=== PATIENT | female | born 1940 | race Caucasian/White ===

== ENCOUNTER 2019-05-24 07:22 | Inpatient (IN) | payer MEDICARE, OTHER ==
--- NOTE | 2019-05-24 08:22 | EDM.PDOC ---
ED HPI GENERAL MEDICAL PROBLEM - General Chief Complaint: General Stated Complaint: MEDICAL VIA AMBULANCE Time Seen by Provider: 05/24/19 08:18 Source of Information: Reports: Patient History Limitations: Reports: No Limitations - History of Present Illness INITIAL COMMENTS - FREE TEXT/NARRATIVE: pt arrived by ambulance because of persistent dizziness and some difficulty swallowing. She does not have a headache. 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 She has not fallen recently. She has a past history of breast ca. Pt is swallowing soft foods at this time. She was placed on predisone when she was seen in [place] a few days ago. She was taken off of lisinopriol and placed on norvasc. Onset: Gradual Duration: Day(s): Location: Reports: Head, Upper Extremity, Left Associated Symptoms: Reports: Other (pt is dizzy when she stands up and is still having some swallowing difficulty. ) - Related Data Allergies Allergy/AdvReac Type Severity Reaction Status Date / Time lisinopril Allergy Edema Verified 05/24/19 07:41 Home Meds: Home Meds Cyanocobalamin (Vitamin B-12) [Vitamin B-12] 1,000 mcg PO DAILY 05/24/19 [ History] Ergocalciferol (Vitamin D2) [Vitamin D2] 400 unit PO DAILY 05/24/19 [History] Fluticasone Propionate [Flonase Allergy Relief] 2 spray CHARAN ASDIRECTED 05/24/19 [History] Metoprolol Succinate [Toprol Xl] 50 mg PO DAILY 05/24/19 [History] Spironolactone 50 mg PO DAILY 05/24/19 [History] Warfarin Sodium 5 - 7.5 mg PO ASDIRECTED 05/24/19 [History] amLODIPine Besylate [Amlodipine Besylate] 10 mg PO DAILY 05/24/19 [History] predniSONE 20 mg PO DAILY 05/24/19 [History] Past Medical History HEENT History: Reports: Cataract Cardiovascular History: Reports: Heart Murmur, Hypertension Musculoskeletal History: Reports: Osteoporosis Neurological History: Reports: TIA Other Endocrine/Metabolic History: Hyperlipidema. hyperaldosteronism Hematologic History: Reports: Anticoagulation Therapy, B12 Deficiency, Other ( See Below) Other Hematologic History: Factor 5 disorder Social & Family History - Tobacco Use Smoking Status *Q: Never Smoker ED ROS GENERAL - Review of Systems Review Of Systems: See Below Constitutional: Reports: No Symptoms, Weakness HEENT: Reports: No Symptoms, Vertigo, Other (dizziness) Respiratory: Reports: Shortness of Breath Cardiovascular: Reports: Other (dizziness) Endocrine: Reports: Fatigue GI/Abdominal: Reports: Difficulty Swallowing, Other (pt is having difficulty swallowing) : Reports: No Symptoms, Frequency Musculoskeletal: Reports: No Symptoms Skin: Reports: No Symptoms Neurological: Reports: Dizziness Psychiatric: Reports: Anxiety ED EXAM, GENERAL - Physical Exam Exam: See Below Free Text/Narrative:: pt arrived stating that she is feeling very dizzy and this has been going on for several days. She has been much weaker than usual. She is not feeling comfortable at home alone. Exam Limited By: No Limitations General Appearance: Alert, No Apparent Distress, Anxious, Other (pupils are equal and reactive. ) Ears: Normal TMs Nose: Normal Inspection Throat/Mouth: Normal Inspection Head: Atraumatic Neck: Normal Inspection Respiratory/Chest: No Respiratory Distress Cardiovascular: Regular Rate, Rhythm GI/Abdominal: Soft, Non-Tender (Female) Exam: Deferred Rectal (Female) Exam: Deferred Back Exam: Normal Inspection Extremities: Normal Inspection Neurological: Alert, Oriented, Normal Cognition Psychiatric: Normal Affect Course - Vital Signs Last Recorded V/S: Last Vital Signs Temp 36.1 C 05/24/19 07:50 Pulse 84 05/24/19 07:50 Resp 16 05/24/19 07:50 BP 116/71 05/24/19 07:50 Pulse Ox 97 05/24/19 07:50 Orthostatic Blood Pressure [ 94/54 Standing] Orthostatic Blood Pressure [ 134/67 Sitting] Orthostatic Blood Pressure [ 137/71 Supine] - Orders/Labs/Meds Orders: Active Orders 24 hr Category Date Time Status EKG Documentation Completion [RC] ASDIRECTED Care 05/24/19 08:17 Active Chest 1V Frontal [CR] Stat Exams 05/24/19 09:05 Taken UA W/MICROSCOPIC [URIN] Urgent Lab 05/24/19 10:03 Ordered Sodium Chloride 0.9% [Normal Saline] 1,000 ml Med 05/24/19 10:15 Ordered IV ASDIRECTED EKG 12 Lead [EK] Routine Ther 05/24/19 08:17 Ordered Medication Orders Sodium Chloride (Normal Saline) 1,000 mls @ 500 mls/hr IV ASDIRECTED SANDRA Labs: Laboratory Tests 05/24/19 05/24/19 05/24/19 Range/Units 08:13 08:13 08:13 WBC 7.0 (4.5-11.0) K/uL RBC 4.17 (3.30-5.50) M/uL Hgb 12.8 (12.0-15.0) g/dL Hct 35.5 L (36.0-48.0) % MCV 85 (80-98) fL MCH 31 (27-31) pg MCHC 36 (32-36) % Plt Count 284 (150-400) K/uL Neut % (Auto) 72 H (36-66) % Lymph % (Auto) 15 L (24-44) % [place] % (Auto) 13 H (2-6) % Eos % (Auto) 0 L (2-4) % Baso % (Auto) 0 (0-1) % PT 22.1 H (9.5-12.0) sec INR 2.14 H (0.80-1.20) Sodium 115 L* (140-148) mmol/L Potassium 5.0 (3.6-5.2) mmol/L Chloride 83 L (100-108) mmol/L Carbon Dioxide 24 (21-32) mmol/L Anion Gap 13.0 (5.0-14.0) mmol/L BUN 29 H (7-18) mg/dL Creatinine 0.9 (0.6-1.0) mg/dL Est Cr Clr Drug Dosing 41.93 mL/min Estimated GFR (MDRD) > 60 (>60) Glucose 125 H (74-106) mg/dL Calcium 10.0 (8.5-10.1) mg/dL Total Bilirubin 1.6 H (0.2-1.0) mg/dL AST 38 H (15-37) U/L ALT 43 (12-78) U/L Alkaline Phosphatase 64 (46-116) U/L Total Protein 7.0 (6.4-8.2) g/dL Albumin 3.8 (3.4-5.0) g/dL Globulin 3.2 (2.3-3.5) g/dL Albumin/Globulin Ratio 1.2 (1.2-2.2) TSH, Ultra Sensitive (0.358-3.740) uIU/mL 05/24/19 Range/Units 08:20 WBC (4.5-11.0) K/uL RBC (3.30-5.50) M/uL Hgb (12.0-15.0) g/dL Hct (36.0-48.0) % MCV (80-98) fL MCH (27-31) pg MCHC (32-36) % Plt Count (150-400) K/uL Neut % (Auto) (36-66) % Lymph % (Auto) (24-44) % [place] % (Auto) (2-6) % Eos % (Auto) (2-4) % Baso % (Auto) (0-1) % PT (9.5-12.0) sec INR (0.80-1.20) Sodium (140-148) mmol/L Potassium (3.6-5.2) mmol/L Chloride (100-108) mmol/L Carbon Dioxide (21-32) mmol/L Anion Gap (5.0-14.0) mmol/L BUN (7-18) mg/dL Creatinine (0.6-1.0) mg/dL Est Cr Clr Drug Dosing mL/min Estimated GFR (MDRD) (>60) Glucose (74-106) mg/dL Calcium (8.5-10.1) mg/dL Total Bilirubin (0.2-1.0) mg/dL AST (15-37) U/L ALT (12-78) U/L Alkaline Phosphatase (46-116) U/L Total Protein (6.4-8.2) g/dL Albumin (3.4-5.0) g/dL Globulin (2.3-3.5) g/dL Albumin/Globulin Ratio (1.2-2.2) TSH, Ultra Sensitive 7.487 H (0.358-3.740) uIU/mL Meds: Medications Generic Name Dose Route Start Last Admin Trade Name Freq PRN Reason Stop Dose Admin Sodium Chloride 1,000 mls @ 500 mls/hr 05/24/19 10:15 Normal Saline IV ASDIRECTED SANDRA - Re-Assessments/Exams Free Text/Narrative Re-Assessment/Exam: 05/24/19 10:02 pt was found to be weaker on the left than the right. The pt did have bilateral subdurals in the past. Her cat scan of the head was normal . Her na was found to be 115. Her tsh is elevated. 05/24/19 10:04 05/24/19 10:04 Departure - Departure Time of Disposition: 10:10 Disposition: Admitted As Inpatient 66 Condition: Fair Clinical Impression: Hyponatremia, Orthostatic hypotension, Vertigo - Discharge Information Referrals: PCP,None [Primary Care Provider] - Forms: ED Department Discharge Care Plan Goals: admit to Dr Juarez Sepsis Event Note - Evaluation Sepsis Screening Result: No Definite Risk - Focused Exam Vital Signs: Vital Signs Temp Pulse Resp BP Pulse Ox 05/24/19 07:50 36.1 C 84 16 116/71 97 05/24/19 07:46 36.1 C 84 16 116/71 97 Date Exam was Performed: 05/24/19 Time Exam was Performed: 10:10 - My Orders Last 24 Hours: My Active Orders 05/24/19 08:17 EKG Documentation Completion [RC] ASDIRECTED EKG 12 Lead [EK] Routine 05/24/19 09:05 Chest 1V Frontal [CR] Stat 05/24/19 10:03 UA W/MICROSCOPIC [URIN] Urgent 05/24/19 10:15 Sodium Chloride 0.9% [Normal Saline] 1,000 ml IV ASDIRECTED - Assessment/Plan Last 24 Hours: My Active Orders 05/24/19 08:17 EKG Documentation Completion [RC] ASDIRECTED EKG 12 Lead [EK] Routine 05/24/19 09:05 Chest 1V Frontal [CR] Stat 05/24/19 10:03 UA W/MICROSCOPIC [URIN] Urgent 05/24/19 10:15 Sodium Chloride 0.9% [Normal Saline] 1,000 ml IV ASDIRECTED
--- NOTE | 2019-05-24 09:31 | CRLCT ---
INDICATION: Left-sided weakness, dizziness. COMPARISON: none TECHNIQUE: A CT volumetric acquisition was performed of the brain without IV contrast. FINDINGS: There is parenchymal volume loss within the cerebellum and both cerebral hemispheres. There is no evidence of a subdural or epidural hematoma. There is no evidence of subarachnoid hemorrhage or intraparenchymal bleeding. The CT images reveal a normal appearance of the cerebral ventricles and basal cisterns. There is no evidence of localized tissue infarction or mass effect. There is normal friedman white matter differentiation. The mastoid air cells and middle ear cavities are clear. There are bilateral craniotomy defects within the frontal portion of the skull. The calvarium otherwise appears intact. There is normal aeration of the visualized paranasal sinuses. IMPRESSION: No acute hemorrhage, infarct or mass effect. There is underlying parenchymal volume loss with prominent CSF spaces. Dictated by Juan Colbert MD @ 05/24/2019 9:28:57 AM Please note that all CT scans at this facility use dose modulation, iterative reconstruction, and/or weight-based dosing when appropriate to reduce radiation dose to as low as reasonably achievable. Dictated by: Juan Colbert MD @ 05/24/2019 09:29:35 (Electronically Signed)
[2019-05-24] MEDS ORDERED: Sodium Chloride 0.9% 1,000 ML IV SCH ×2 (10:15→12:37)
--- NOTE | 2019-05-24 10:21 | CRLCR ---
INDICATION: low NA, SOB HISTORY: Hyponatremia. Shortness of breath. COMPARISON: None. TECHNIQUE: Chest one-view portable upright. FINDINGS: Elevation of the right hemidiaphragm. Pulmonary roya appear enlarged. This may represent pulmonary arterial hypertension. Hilar adenopathy is an additional consideration. There is no thickening of the right paratracheal stripe. There is no pneumothorax. The osseous structures are intact. Heart size and pulmonary vasculature are within normal limits. IMPRESSION: 1. There is no acute airspace disease. 2. Bilateral hilar enlargement. No thickening of the right paratracheal stripe. 3. Differential diagnosis includes pulmonary arterial hypertension or hilar lymphadenopathy. Suggest comparison with remote chest x-rays, which are not currently available for review. Dictated by Juvencio Austin MD @ 05/24/2019 10:20:10 AM Dictated by: Juvencio Austin MD @ 05/24/2019 10:20:20 (Electronically Signed)
--- NOTE | 2019-05-24 12:00 | PCM.HP.2 ---
H&P History of Present Illness - General Date of Service: 05/24/19 Admit Problem/Dx: Admission Diagnosis/Problem Admission Diagnosis/Problem Hyponatremia Source of Information: Patient, Provider History Limitations: Reports: No Limitations - History of Present Illness Initial Comments - Free Text/Narative: CC: I was hungry but too weak to get out of bed HPI: Mary presents to the emergency room today with weakness and dizziness. Symptoms started about 1 week ago and have progressed. She was seen in the emergency room in [place] 2 days ago. There was concern for angioedema from her lisinopril with difficulty swallowing noted. Lisinopril was stopped and she was started on amlodipine in its place. She was also given prednisone for a total of 5 days. Since that time she thinks her swelling got better but now she is developed worsening weakness and dizziness/lightheadedness. She has had very little to eat or drink in the last few days because of her weakness and inability to get out of bed. She thinks her swallowing is getting better. She does not feel breath and has not had chest pain no abdominal pain or nausea. No change in bowel or bladder habits but she has been urinating less than usual. She is not aware of any fevers or chills. Work-up in the 2 room revealed positive orthostatics as well as a sodium of 115. She has received 1 L of IV fluids. She will be admitted for management of presumed hypovolemic hyponatremia and generalized weakness. - Related Data Allergies/Adverse Reactions: Allergies Allergy/AdvReac Type Severity Reaction Status Date / Time lisinopril Allergy Edema Verified 05/24/19 07:41 Home Medications: Home Meds Cyanocobalamin (Vitamin B-12) [Vitamin B-12] 1,000 mcg PO DAILY 05/24/19 [ History] Ergocalciferol (Vitamin D2) [Vitamin D2] 400 unit PO DAILY 05/24/19 [History] Fluticasone Propionate [Flonase Allergy Relief] 2 spray CHARAN ASDIRECTED 05/24/19 [History] Metoprolol Succinate [Toprol Xl] 50 mg PO DAILY 05/24/19 [History] Spironolactone 50 mg PO BID 05/24/19 [History] Warfarin Sodium 7.5 mg PO ASDIRECTED 05/24/19 [History] Warfarin [Coumadin] 5 mg PO ASDIRECTED 05/24/19 [History] amLODIPine Besylate [Amlodipine Besylate] 10 mg PO DAILY 05/24/19 [History] predniSONE 20 mg PO DAILY 05/24/19 [History] Past Medical History HEENT History: Reports: Cataract Cardiovascular History: Reports: Heart Murmur, Hypertension Musculoskeletal History: Reports: Osteoporosis Neurological History: Reports: TIA Other Endocrine/Metabolic History: Hyperlipidema. hyperaldosteronism Hematologic History: Reports: Anticoagulation Therapy, B12 Deficiency, Other ( See Below) Other Hematologic History: Factor 5 disorder Social & Family History - Tobacco Use Smoking Status *Q: Never Smoker H&P Review of Systems - Review of Systems: Review Of Systems: See Below Free Text/Narrative: A complete 12 point review of systems was obtained. Pertinent positives and negatives are noted in the history of present illness. All other systems were reviewed and were negative except as noted. Exam - Exam Exam: See Below - Vital Signs Vital Signs: Last Vital Signs Temp 36.1 C 05/24/19 07:50 Pulse 84 05/24/19 07:50 Resp 16 05/24/19 07:50 BP 116/71 05/24/19 07:50 Pulse Ox 97 05/24/19 07:50 Orthostatic Blood Pressure [ 94/54 Standing] Orthostatic Blood Pressure [ 134/67 Sitting] Orthostatic Blood Pressure [ 137/71 Supine] Weight: 63.957 kg - Exam Quality Assessment: No: Supplemental Oxygen General: Alert, Oriented, Cooperative. No: Mild Distress HEENT: Conjunctiva Clear, Mucosa Moist & [place]. No: Scleral Icterus Neck: Supple, Trachea Midline Lungs: Clear to Auscultation, Normal Respiratory Effort Cardiovascular: Regular Rate, Regular Rhythm, Systolic Murmur GI/Abdominal Exam: Normal Bowel Sounds, Soft, Non-Tender, No Distention Extremities: No Pedal Edema. No: Increased Warmth Skin: Warm, Dry Neuro Extensive - Mental Status: Alert, Oriented x3, Nl Response to Commands Neuro Extensive - Motor, Sensory, Reflexes: No: Dysarthria, Abnormal Motor, Tremor Psychiatric: Alert, Normal Affect - Patient Data Lab Results Last 24 hrs: Laboratory Results - last 24 hr 05/24/19 05/24/19 05/24/19 Range/Units 08:13 08:13 08:13 WBC 7.0 (4.5-11.0) K/uL RBC 4.17 (3.30-5.50) M/uL Hgb 12.8 (12.0-15.0) g/dL Hct 35.5 L (36.0-48.0) % MCV 85 (80-98) fL MCH 31 (27-31) pg MCHC 36 (32-36) % Plt Count 284 (150-400) K/uL Neut % (Auto) 72 H (36-66) % Lymph % (Auto) 15 L (24-44) % [place] % (Auto) 13 H (2-6) % Eos % (Auto) 0 L (2-4) % Baso % (Auto) 0 (0-1) % PT 22.1 H (9.5-12.0) sec INR 2.14 H (0.80-1.20) Sodium 115 L* (140-148) mmol/L Potassium 5.0 (3.6-5.2) mmol/L Chloride 83 L (100-108) mmol/L Carbon Dioxide 24 (21-32) mmol/L Anion Gap 13.0 (5.0-14.0) mmol/L BUN 29 H (7-18) mg/dL Creatinine 0.9 (0.6-1.0) mg/dL Est Cr Clr Drug Dosing 41.93 mL/min Estimated GFR (MDRD) > 60 (>60) Glucose 125 H (74-106) mg/dL Calcium 10.0 (8.5-10.1) mg/dL Total Bilirubin 1.6 H (0.2-1.0) mg/dL AST 38 H (15-37) U/L ALT 43 (12-78) U/L Alkaline Phosphatase 64 (46-116) U/L Total Protein 7.0 (6.4-8.2) g/dL Albumin 3.8 (3.4-5.0) g/dL Globulin 3.2 (2.3-3.5) g/dL Albumin/Globulin Ratio 1.2 (1.2-2.2) TSH, Ultra Sensitive (0.358-3.740) uIU/mL Urine Color (YELLOW) Urine Appearance (CLEAR) Urine pH (5.0-8.0) Ur Specific [place] (1.008-1.030) Urine Protein (NEGATIVE) mg/dL Urine Glucose (UA) (NEGATIVE) mg/dL Urine Ketones (NEGATIVE) mg/dL Urine Occult Blood (NEGATIVE) Urine Nitrite (NEGATIVE) Urine Bilirubin (NEGATIVE) Urine Urobilinogen (0.2-1.0) EU/dL Ur Leukocyte Esterase (NEGATIVE) Urine RBC (0-5) Urine WBC (0-5) Ur Epithelial Cells Amorphous Sediment Urine Bacteria Urine Mucus 05/24/19 05/24/19 Range/Units 08:20 10:03 WBC (4.5-11.0) K/uL RBC (3.30-5.50) M/uL Hgb (12.0-15.0) g/dL Hct (36.0-48.0) % MCV (80-98) fL MCH (27-31) pg MCHC (32-36) % Plt Count (150-400) K/uL Neut % (Auto) (36-66) % Lymph % (Auto) (24-44) % [place] % (Auto) (2-6) % Eos % (Auto) (2-4) % Baso % (Auto) (0-1) % PT (9.5-12.0) sec INR (0.80-1.20) Sodium (140-148) mmol/L Potassium (3.6-5.2) mmol/L Chloride (100-108) mmol/L Carbon Dioxide (21-32) mmol/L Anion Gap (5.0-14.0) mmol/L BUN (7-18) mg/dL Creatinine (0.6-1.0) mg/dL Est Cr Clr Drug Dosing mL/min Estimated GFR (MDRD) (>60) Glucose (74-106) mg/dL Calcium (8.5-10.1) mg/dL Total Bilirubin (0.2-1.0) mg/dL AST (15-37) U/L ALT (12-78) U/L Alkaline Phosphatase (46-116) U/L Total Protein (6.4-8.2) g/dL Albumin (3.4-5.0) g/dL Globulin (2.3-3.5) g/dL Albumin/Globulin Ratio (1.2-2.2) TSH, Ultra Sensitive 7.487 H (0.358-3.740) uIU/mL Urine Color Yellow (YELLOW) Urine Appearance Clear (CLEAR) Urine pH 7.0 (5.0-8.0) Ur Specific [place] 1.015 (1.008-1.030) Urine Protein Negative (NEGATIVE) mg/dL Urine Glucose (UA) Negative (NEGATIVE) mg/dL Urine Ketones Negative (NEGATIVE) mg/dL Urine Occult Blood Negative (NEGATIVE) Urine Nitrite Negative (NEGATIVE) Urine Bilirubin Negative (NEGATIVE) Urine Urobilinogen 1.0 (0.2-1.0) EU/dL Ur Leukocyte Esterase Negative (NEGATIVE) Urine RBC Not seen (0-5) Urine WBC 0-5 (0-5) Ur Epithelial Cells Rare Amorphous Sediment Rare Urine Bacteria Not seen Urine Mucus Not seen Result Diagrams: 05/24/19 08:13 05/24/19 08:13 Imaging Impressions Last 24 hrs: Head CT-images personally reviewed-no acute intracranial findings though there does appear to be some mild volume low prominent CSF spaces. No mass, hemorrhage or stroke. chest [id number] personally reviewed-lungs are clear with no mass, infiltrate or effusion. Sepsis Event Note - Evaluation Sepsis Screening Result: No Definite Risk - Focused Exam Vital Signs: Vital Signs Temp Pulse Resp BP Pulse Ox 05/24/19 07:50 36.1 C 84 16 116/71 97 05/24/19 07:46 36.1 C 84 16 116/71 97 Date Exam was Performed: 05/24/19 Time Exam was Performed: 15:56 *Q Meaningful Use (ADM) - VTE Risk Assess *Q Each Risk Factor Represents 1 Point: Obesity ( BMI > 25 kg/m2) Total Score 1 Point Risk Factors: 1 Each Risk Factor Represents 2 Points: Malignancy (present or previous) Total Score 2 Point Risk Factors: 2 Each Risk Factor Represents 3 Points: Age 75 Years or Greater Total Score 3 Point Risk Factors: 3 Each Risk Factor Represents 5 Points: None Total Score 5 Point Risk Factors: 0 Venous Thromboembolism Risk Factor Score *Q: 6 - Problem List (1) Hyponatremia SNOMED Code(s): 35465643 ICD Code: E87.1 - HYPO-OSMOLALITY AND HYPONATREMIA Status: Acute Current Visit: Yes (2) Hyperaldosteronism SNOMED Code(s): 96894302 ICD Code: E26.9 - HYPERALDOSTERONISM, UNSPECIFIED Status: Acute Current Visit: Yes (3) Orthostatic hypotension SNOMED Code(s): 73525880 ICD Code: I95.1 - ORTHOSTATIC HYPOTENSION Status: Acute Current Visit: Yes (4) Essential hypertension SNOMED Code(s): 95446048 ICD Code: I10 - ESSENTIAL (PRIMARY) HYPERTENSION Status: Chronic Current Visit: Yes Problem List Initiated/Reviewed/Updated: Yes Orders Last 24hrs: Active Orders 24 hr Category Date Time Status Patient Status Manage Transfer [TRANSFER] Routine ADT 05/24/19 11:50 Ordered EKG Documentation Completion [RC] ASDIRECTED Care 05/24/19 08:17 Active Sodium Chloride 0.9% [Normal Saline] 1,000 ml Med 05/24/19 10:15 Active IV ASDIRECTED Resuscitation Status Routine Resus Stat 05/24/19 11:54 Ordered EKG 12 Lead [EK] Routine Ther 05/24/19 08:17 Ordered Medication Orders Sodium Chloride (Normal Saline) 1,000 mls @ 500 mls/hr IV ASDIRECTED SANDRA Last Admin: 05/24/19 10:19 Dose: 500 mls/hr Assessment/Plan Comment:: ASSESSMENT AND PLAN - Severe hyponatremia-suspect hypovolemia. I believe this is the cause for her dizziness and weakness. not sure if there is contribution from recent use of lisinopril. Poor intake for the last 3 days. Orthostatics were positive. -Additional 1 L of fluid over 2 hours and then continuous infusion overnight -Repeat sodium this afternoon -Advance diet as tolerated -Physical therapy in the morning Hyperaldosteronism-chronically on spironolactone and this will be continued. Potassium on the higher side of normal and will need close monitoring. Essential hypertension-blood pressure on the low side in the emergency room. -Hold amlodipine today, restart tomorrow at a lower dose -Continue metoprolol Possible angioedema-lisinopril stopped few days ago. She thinks her swallowing is getting better and can handle liquids fine. No tongue swelling noted today. -Prednisone today and tomorrow Maintenance issues - - DVT prophylaxis -mechanical - GI prophylaxis -not indicated - Nutrition -full liquids today, advance as tolerated - Nation catheter -not indicated CODE STATUS -full code Admission justification -this patient will be admitted for inpatient services and is medically appropriate meeting medical necessity for inpatient admission as outlined in my documentation. I reasonably expect the patient will require inpatient services that span a period time over 2 midnights. I reasonably expect this patient to be discharged or transferred within 96 hours after admission to the [facility]. Disposition -I would anticipate discharge home after the hospital stay Primary care physician - Dr Gabriel Juarez M.D. - Mortality Measure Prognosis:: Good
[2019-05-24] MEDS ORDERED: Ondansetron 4 MG Tab.DIS PO PRN (12:37)
[2019-05-24] MEDS ORDERED: Magnesium Hydroxide 400 MG/5 ML Susp 30 ML Cup PO PRN (12:37)
[2019-05-24] MEDS ORDERED: Acetaminophen 325 MG Tab PO PRN (12:37)
[2019-05-24] MEDS ORDERED: Melatonin 3 MG Tab PO PRN (12:37)
[2019-05-24] MEDS ORDERED: Ondansetron 4 MG/2 ML SDV IV PRN (12:37)
[2019-05-24] MEDS: Warfarin 5 MG Tab PO SCH (14:32)
[2019-05-24] MEDS: predniSONE 20 MG Tab PO SCH (14:33)
[2019-05-24] MEDS: Sodium Chloride 0.9% 1,000 ML IV SCH (20:28)
[2019-05-24] MEDS: Spironolactone 25 MG Tab PO SCH (20:49)
[2019-05-24] MEDS ORDERED: Non-Formulary Medication 1 Each (Spironolactone [Spironolactone] 50 MG) PO SCH (21:00)
[2019-05-25] MEDS: Sodium Chloride 0.9% 1,000 ML IV SCH ×2 (04:41→12:38)
[2019-05-25] MEDS ORDERED: Metoprolol Succinate 50 MG Tab.ER PO SCH (09:00)
[2019-05-25] MEDS ORDERED: Non-Formulary Medication 1 Each (Cyanocobalamin (Vitamin B-12) [Vitamin B-12] 1,000 MCG) PO SCH (09:00)
[2019-05-25] MEDS: Cyanocobalamin (Vitamin B12) 1,000 MCG Tab PO SCH (09:36)
[2019-05-25] MEDS: amLODIPine 5 MG Tab PO SCH (09:36)
[2019-05-25] MEDS: Spironolactone 25 MG Tab PO SCH ×2 (09:36→20:46)
[2019-05-25] MEDS: predniSONE 20 MG Tab PO SCH (09:36)
[2019-05-25] MEDS ORDERED: Warfarin 5 MG Tab PO SCH (13:00)
[2019-05-25] MEDS ORDERED: Warfarin 5 MG, Warfarin 2.5 MG PO SCH ×2 (13:00)
[2019-05-25] MEDS ORDERED: Sodium Chloride 0.9% 1,000 ML IV SCH (15:30)
--- NOTE | 2019-05-25 16:07 | PCM.PN ---
- General Info Date of Service: 05/25/19 Subjective Update: Ms. Cuevas is a 79-year-old woman who was admitted through the emergency department with significant hyponatremia acute kidney injury, thought to be secondary to recent therapy with lisinopril. She has a history of significant allergic reaction to lisinopril and recently was started on it, also experienced some throat swelling and difficulty swallowing. She is feeling improved today and swallowing difficulty has improved but not resolved. Hyponatremia is better and renal function also improved but not yet back to baseline. Functional Status: Reports: Tolerating Diet, Ambulating, Urinating - Review of Systems General: Reports: Weakness. Denies: Fever, Chills HEENT: Reports: Dysphasia Pulmonary: Reports: No Symptoms Cardiovascular: Reports: No Symptoms Gastrointestinal: Reports: No Symptoms Genitourinary: Reports: No Symptoms - Patient Data Vitals - Most Recent: Last Vital Signs Temp 96.2 F 05/25/19 14:55 Pulse 85 05/25/19 14:55 Resp 18 05/25/19 14:55 BP 168/74 H 05/25/19 14:55 Pulse Ox 100 05/25/19 14:55 Orthostatic Blood Pressure [ 94/54 Standing] Orthostatic Blood Pressure [ 134/67 Sitting] Orthostatic Blood Pressure [ 137/71 Supine] Weight - Most Recent: 141 lb I&O - Last 24 Hours: Intake & Output 05/25/19 05/25/19 05/25/19 06:59 14:59 22:59 Intake Total 800 720 Output Total 900 1000 Balance -100 -280 Lab Results Last 24 Hours: Laboratory Results - last 24 hr 05/24/19 05/24/19 05/25/19 Range/Units 16:10 21:58 05:54 WBC 3.2 L (4.5-11.0) K/uL RBC 3.59 (3.30-5.50) M/uL Hgb 10.9 L (12.0-15.0) g/dL Hct 31.4 L (36.0-48.0) % MCV 88 (80-98) fL MCH 30 (27-31) pg MCHC 35 (32-36) % Plt Count 210 (150-400) K/uL PT (9.5-12.0) sec INR (0.80-1.20) Sodium 118 L* 120 L (140-148) mmol/L Potassium 5.6 H (3.6-5.2) mmol/L Chloride 91 L (100-108) mmol/L Carbon Dioxide 23 (21-32) mmol/L Anion Gap 11.6 (5.0-14.0) mmol/L BUN 20 H (7-18) mg/dL Creatinine 0.6 (0.6-1.0) mg/dL Est Cr Clr Drug Dosing 62.89 mL/min Estimated GFR (MDRD) > 60 (>60) Glucose 116 H (74-106) mg/dL Calcium 9.0 (8.5-10.1) mg/dL Total Bilirubin (0.2-1.0) mg/dL AST (15-37) U/L ALT (12-78) U/L Alkaline Phosphatase (46-116) U/L Total Protein (6.4-8.2) g/dL Albumin (3.4-5.0) g/dL Globulin (2.3-3.5) g/dL Albumin/Globulin Ratio (1.2-2.2) 05/25/19 05/25/19 Range/Units 05:54 05:54 WBC (4.5-11.0) K/uL RBC (3.30-5.50) M/uL Hgb (12.0-15.0) g/dL Hct (36.0-48.0) % MCV (80-98) fL MCH (27-31) pg MCHC (32-36) % Plt Count (150-400) K/uL PT 28.4 H (9.5-12.0) sec INR 2.79 H (0.80-1.20) Sodium 123 L (140-148) mmol/L Potassium 4.4 (3.6-5.2) mmol/L Chloride 93 L (100-108) mmol/L Carbon Dioxide 23 (21-32) mmol/L Anion Gap 11.4 (5.0-14.0) mmol/L BUN 17 (7-18) mg/dL Creatinine 0.6 (0.6-1.0) mg/dL Est Cr Clr Drug Dosing 62.89 mL/min Estimated GFR (MDRD) > 60 (>60) Glucose 88 (74-106) mg/dL Calcium 8.8 (8.5-10.1) mg/dL Total Bilirubin 1.7 H (0.2-1.0) mg/dL AST 27 (15-37) U/L ALT 32 (12-78) U/L Alkaline Phosphatase 54 (46-116) U/L Total Protein 5.5 L (6.4-8.2) g/dL Albumin 2.8 L (3.4-5.0) g/dL Globulin 2.7 (2.3-3.5) g/dL Albumin/Globulin Ratio 1.0 L (1.2-2.2) Med Orders - Current: Current Medications Acetaminophen (Tylenol) 650 mg PO Q4H PRN PRN Reason: Pain (Mild 1-3)/fever Amlodipine Besylate (Norvasc) 5 mg PO DAILY [facility] Last Admin: 05/25/19 09:36 Dose: 5 mg Cyanocobalamin (Vitamin B12) 1,000 mcg PO DAILY [facility] Last Admin: 05/25/19 09:36 Dose: 1,000 mcg Sodium Chloride (Normal Saline) 1,000 mls @ 50 mls/hr IV ASDIRECTED [facility] Magnesium Hydroxide (Milk Of Magnesia) 30 ml PO Q12H PRN PRN Reason: Constipation Melatonin (Melatonin) 9 mg PO BEDTIME PRN PRN Reason: Sleep Ondansetron HCl (Zofran Odt) 4 mg PO Q6H PRN PRN Reason: Nausea able to take PO Ondansetron HCl (Zofran) 4 mg IV Q6H PRN PRN Reason: Nausea/Vomiting Senna/Docusate Sodium (Senna Plus) 1 tab PO BID PRN PRN Reason: Constipation Spironolactone (Aldactone) 50 mg PO BID [facility] Last Admin: 05/25/19 09:36 Dose: 50 mg Warfarin Sodium (Coumadin) 5 mg PO SuTuTh@1300 [facility] Last Admin: 05/24/19 14:32 Dose: 5 mg Warfarin Sodium 5 mg/ Warfarin (Sodium 2.5 mg) 7.5 mg PO MoWeFrSa@1300 [facility] Last Admin: 05/25/19 12:40 Dose: 7.5 mg Discontinued Medications Sodium Chloride (Normal Saline) 1,000 mls @ 500 mls/hr IV ASDIRECTED [facility] Last Admin: 05/24/19 10:19 Dose: 500 mls/hr Sodium Chloride (Normal Saline) 1,000 mls @ 125 mls/hr IV ASDIRECTED [facility] Last Admin: 05/25/19 12:38 Dose: 125 mls/hr Sodium Chloride (Normal Saline) 1,000 mls @ 500 mls/hr IV ASDIRECTED [facility] Stop: 05/24/19 14:38 Metoprolol Succinate (Toprol Xl) 50 mg PO DAILY [facility] Prednisone (Prednisone) 20 mg PO DAILY [facility] Stop: 05/25/19 09:01 Last Admin: 05/25/19 09:36 Dose: 20 mg - Exam General: Alert, Cooperative, Mild Distress Lungs: Clear to Auscultation, Normal Respiratory Effort Cardiovascular: Regular Rate, Regular Rhythm, No Murmurs GI/Abdominal Exam: Soft, Non-Tender, No Organomegaly, No Distention Extremities: Non-Tender, No Pedal Edema Sepsis Event Note - Evaluation Sepsis Screening Result: No Definite Risk - Focused Exam Vital Signs: Vital Signs Temp Pulse Resp BP BP Pulse Ox 05/25/19 14:55 96.2 F 85 18 168/74 H 100 05/25/19 10:42 96.6 F 66 18 153/70 H 97 05/25/19 09:36 138/78 05/25/19 07:00 96.4 F 64 18 138/78 98 Date Exam was Performed: 05/25/19 Time Exam was Performed: 16:08 - Problem List Review Problem List Initiated/Reviewed/Updated: Yes - My Orders Last 24 Hours: My Active Orders 05/25/19 11:00 Consult to Speech Language Pathology [[facility] Evaluation and Treatment] [CONS] Routine 05/25/19 15:30 Sodium Chloride 0.9% [Normal Saline] 1,000 ml IV ASDIRECTED 05/25/19 17:00 BASIC METABOLIC PANEL,BMP [CHEM] Stat 05/25/19 Lunch GI Soft Low Fiber [Soft Diet] [DIET] 05/26/19 05:00 COMPREHENSIVE METABOLIC PN,CMP [CHEM] Timed INR,PT,PROTHROMBIN TIME [COAG] Timed - Plan Plan:: ASSESSMENT AND PLAN - Severe hyponatremia-suspect hypovolemia. Improved with hydration -Decrease IV rate to 50 cc/h -Repeat sodium this afternoon and in a.m. -Soft low residue diet -Physical therapy Hyperaldosteronism-chronically on spironolactone and this will be continued. Potassium on the higher side of normal and will need close monitoring. Essential hypertension -Continue amlodipine 5 mg p.o. daily -Continue metoprolol Possible angioedema-lisinopril stopped few days ago. She thinks her swallowing is getting better and can handle liquids fine. Swallowing is improved but she continues to experience some difficulty -Prednisone today -Speach therapy evaluation Maintenance issues - - DVT prophylaxis -mechanical - GI prophylaxis -not indicated - Nutrition -soft low residue diet - Nation catheter -not indicated CODE STATUS -full code Admission justification -this patient will be admitted for inpatient services and is medically appropriate meeting medical necessity for inpatient admission as outlined in my documentation. I reasonably expect the patient will require inpatient services that span a period time over 2 midnights. I reasonably expect this patient to be discharged or transferred within 96 hours [facility] Disposition -I would anticipate discharge home after the hospital stay Primary care physician - Dr Rios
[2019-05-26] MEDS: amLODIPine 5 MG Tab PO SCH (10:20)
[2019-05-26] MEDS: Spironolactone 25 MG Tab PO SCH (10:23)
[2019-05-26] MEDS: Cyanocobalamin (Vitamin B12) 1,000 MCG Tab PO SCH (10:23)
[2019-05-26 11:23] VITALS: BP 143/76; PULSE 70
--- NOTE | 2019-05-26 13:04 | PCM.DCSUM1 ---
Discharge Summary - Hospital Course Brief History: Ms. Cuevas is a 79-year-old woman who was admitted through the emergency department with severe weakness and lightheadedness secondary to marked hyponatremia and orthostatic hypotension. 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 PT Reason for Consult: Strengthening This query below is only for informational purposes and is not editable. Hospital Course: Ms. Cuevas presented to the emergency room with weakness and dizziness. Symptoms started about 1 week to admission and have progressed. She was seen in the emergency room in [place] 2 days to admission. There was concern for angioedema from her lisinopril with difficulty swallowing noted. Lisinopril was stopped and she was started on amlodipine in its place. She was also given prednisone for a total of 5 days. Since that time she thinks her swelling got better but now she is developed worsening weakness and dizziness/ lightheadedness. She has had very little to eat or drink in the last few days because of her weakness and inability to get out of bed. She thinks her swallowing is getting better. She does not feel breath and has not had chest pain no abdominal pain or nausea. No change in bowel or bladder habits but she has been urinating less than usual. She is not aware of any fevers or chills. Work-up in the emergency department revealed positive orthostatics as well as a sodium of 115. She has received 1 L of IV fluids. She will be admitted for management of presumed hypovolemic hyponatremia and generalized weakness. Serial sodium levels were monitored and by the following morning sodium level had improved to 123. Orthostasis and symptoms of lightheadedness improved with hydration. The morning of discharge sodium level had improved to 126. At the time of admission she continued to experience symptoms of some swelling in her throat and difficulty with swallowing. By the time of discharge swallowing symptoms had entirely resolved. Initially speech therapy consult has been ordered, with resolution of symptoms this was canceled. Much of her difficulty was thought to be secondary to reaction from the lisinopril. Lisinopril had been discontinued 2 days prior to admission. On discharge she will be on usual dose of metoprolol and a decreased dose of amlodipine at 5 mg daily. Activity will be as tolerated and she she will resume her usual diet. She was noted to have difficulty with confusion during hospitalization and after discussion with family it appears likely that she is suffering from some early dementia. Follow -up appointment will be scheduled with her primary care provider within 1 week, BMP should be obtained at the time of follow-up appointment for reassessment of sodium level and renal function. - Patient Instructions Diet: Low Sodium Activity: As Tolerated Other/Special Instructions: Please schedule follow-up appointment with primary care provider within 1 week. BMP should be obtained at the time of follow-up appointment. - Discharge Plan *PRESCRIPTION DRUG MONITORING PROGRAM REVIEWED*: Not Applicable *COPY OF PRESCRIPTION DRUG MONITORING REPORT IN PATIENT FABRIZIO: Not Applicable Prescriptions/Med Rec: amLODIPine [Norvasc] 5 mg PO DAILY #30 tablet Home Medications: Home Meds Cyanocobalamin (Vitamin B-12) [Vitamin B-12] 1,000 mcg PO DAILY 05/24/19 [ History] Ergocalciferol (Vitamin D2) [Vitamin D2] 400 unit PO DAILY 05/24/19 [History] Fluticasone Propionate [Flonase Allergy Relief] 2 spray CHARAN ASDIRECTED 05/24/19 [History] Metoprolol Succinate [Toprol Xl] 50 mg PO DAILY 05/24/19 [History] Spironolactone 50 mg PO BID 05/24/19 [History] Warfarin [Coumadin] 5 mg PO SuTuTh@1300 tablet 05/26/19 [Rx] Warfarin [Coumadin] 7.5 mg PO MoWeFrSa@1300 tablet 05/26/19 [Rx] amLODIPine [Norvasc] 5 mg PO DAILY #30 tablet 05/26/19 [Rx] - Discharge Summary/Plan Comment DC Time >30 min.: No - Patient Data Vitals - Most Recent: Last Vital Signs Temp 97.0 F 05/26/19 09:00 Pulse 70 05/26/19 09:00 Resp 18 05/26/19 09:00 BP 134/61 05/26/19 10:20 Pulse Ox 100 05/26/19 09:00 Orthostatic Blood Pressure [ 94/54 Standing] Orthostatic Blood Pressure [ 134/67 Sitting] Orthostatic Blood Pressure [ 137/71 Supine] Weight - Most Recent: 141 lb I&O - Last 24 hours: Intake & Output 05/25/19 05/26/19 05/26/19 22:59 06:59 14:59 Intake Total 1434 Output Total 1300 500 Balance 134 -500 Lab Results - Last 24 hrs: Laboratory Results - last 24 hr 05/25/19 05/26/19 05/26/19 Range/Units 17:00 05:20 05:20 PT 30.0 H (9.5-12.0) sec INR 2.95 H (0.80-1.20) Sodium 123 L 126 L (140-148) mmol/L Potassium 5.0 4.2 (3.6-5.2) mmol/L Chloride 92 L 96 L (100-108) mmol/L Carbon Dioxide 23 25 (21-32) mmol/L Anion Gap 13.0 9.2 (5.0-14.0) mmol/L BUN 19 H 21 H (7-18) mg/dL Creatinine 0.7 0.7 (0.6-1.0) mg/dL Est Cr Clr Drug Dosing 53.91 53.91 mL/min Estimated GFR (MDRD) > 60 > 60 (>60) Glucose 118 H 90 (74-106) mg/dL Calcium 9.9 9.3 (8.5-10.1) mg/dL Total Bilirubin 1.5 H (0.2-1.0) mg/dL AST 26 (15-37) U/L ALT 34 (12-78) U/L Alkaline Phosphatase 57 (46-116) U/L Total Protein 6.3 L (6.4-8.2) g/dL Albumin 3.3 L (3.4-5.0) g/dL Globulin 3.0 (2.3-3.5) g/dL Albumin/Globulin Ratio 1.1 L (1.2-2.2) Med Orders - Current: Current Medications Acetaminophen (Tylenol) 650 mg PO Q4H PRN PRN Reason: Pain (Mild 1-3)/fever Amlodipine Besylate (Norvasc) 5 mg PO DAILY [facility] Last Admin: 05/26/19 10:20 Dose: 5 mg Cyanocobalamin (Vitamin B12) 1,000 mcg PO DAILY [facility] Last Admin: 05/26/19 10:23 Dose: 1,000 mcg Sodium Chloride (Normal Saline) 1,000 mls @ 50 mls/hr IV ASDIRECTED [facility] Last Admin: 05/26/19 04:03 Dose: 50 mls/hr Magnesium Hydroxide (Milk Of Magnesia) 30 ml PO Q12H PRN PRN Reason: Constipation Melatonin (Melatonin) 9 mg PO BEDTIME PRN PRN Reason: Sleep Ondansetron HCl (Zofran Odt) 4 mg PO Q6H PRN PRN Reason: Nausea able to take PO Ondansetron HCl (Zofran) 4 mg IV Q6H PRN PRN Reason: Nausea/Vomiting Senna/Docusate Sodium (Senna Plus) 1 tab PO BID PRN PRN Reason: Constipation Spironolactone (Aldactone) 50 mg PO BID [facility] Last Admin: 05/26/19 10:23 Dose: 50 mg Warfarin Sodium (Coumadin) 5 mg PO SuTuTh@1300 [facility] Last Admin: 05/24/19 14:32 Dose: 5 mg Warfarin Sodium 5 mg/ Warfarin (Sodium 2.5 mg) 7.5 mg PO MoWeFrSa@1300 [facility] Last Admin: 05/25/19 12:40 Dose: 7.5 mg Discontinued Medications Sodium Chloride (Normal Saline) 1,000 mls @ 500 mls/hr IV ASDIRECTED [facility] Last Admin: 05/24/19 10:19 Dose: 500 mls/hr Sodium Chloride (Normal Saline) 1,000 mls @ 125 mls/hr IV ASDIRECTED [facility] Last Admin: 05/25/19 12:38 Dose: 125 mls/hr Sodium Chloride (Normal Saline) 1,000 mls @ 500 mls/hr IV ASDIRECTED [facility] Stop: 05/24/19 14:38 Metoprolol Succinate (Toprol Xl) 50 mg PO DAILY [facility] Prednisone (Prednisone) 20 mg PO DAILY [facility] Stop: 05/25/19 09:01 Last Admin: 05/25/19 09:36 Dose: 20 mg - Exam General: Reports: Alert, Cooperative, No Acute Distress Lungs: Reports: Clear to Auscultation, Normal Respiratory Effort Cardiovascular: Reports: Regular Rate, Regular Rhythm, No Murmurs GI/Abdominal Exam: Soft, Non-Tender, No Organomegaly, No Distention Skin: Reports: Warm, Dry, Intact
[2019-05-26] MEDS: Warfarin 5 MG Tab PO SCH (13:53)
== END 2019-05-26 16:15 | disposition home or self-care (01) | DRG 641 ==
LOC: JP.ED 07:22 → JP.MS 11:50
PROVIDERS: ADMIT Internal Medicine; ATTEND Hospitalist
DX: E87.1 Hypo-osmolality and hyponatremia (principal); D68.2 Hereditary deficiency of other clotting factors; R42 Dizziness and giddiness; N17.9 Acute kidney failure, unspecified; I95.1 Orthostatic hypotension; E26.9 Hyperaldosteronism, unspecified; R53.1 Weakness; I10 Essential (primary) hypertension; M81.0 Age-related osteoporosis without current pathological fracture; D68.51 Activated protein C resistance; H26.9 Unspecified cataract; E78.5 Hyperlipidemia, unspecified; F03.90 Unspecified dementia, unspecified severity, without behavioral disturbance, psychotic disturbance, mood disturbance, and anxiety; Z79.52 Long term (current) use of systemic steroids; E53.8 Deficiency of other specified B group vitamins; T78.3XXA Angioneurotic edema, initial encounter; T46.4X5A Adverse effect of angiotensin-converting-enzyme inhibitors, initial encounter; Z88.8 Allergy status to other drugs, medicaments and biological substances; Z79.51 Long term (current) use of inhaled steroids; Z79.01 Long term (current) use of anticoagulants; Z79.899 Other long term (current) drug therapy; Z86.73 Personal history of transient ischemic attack (TIA), and cerebral infarction without residual deficits
CPT/HCPCS: 36415; 70450; 71045; 80048; 80053; 81001; 84295; 84443; 85025; 85027; 85610; 85651; 86140; 92610-GN; 93005; 93010; 96360; 96361; 97161-GP; 99285-25; A9270-GY; J7030

== ENCOUNTER 2022-06-26 10:18 | Emergency (ER) | payer MEDICARE, OTHER | END 2022-06-26 11:59 | disposition home or self-care (01) | LOC: JP.ED 10:18 | DX: R42 Dizziness and giddiness (principal); R55 Syncope and collapse; I10 Essential (primary) hypertension; E78.5 Hyperlipidemia, unspecified; Z88.8 Allergy status to other drugs, medicaments and biological substances; Z86.73 Personal history of transient ischemic attack (TIA), and cerebral infarction without residual deficits; Z79.01 Long term (current) use of anticoagulants | CPT/HCPCS: 36415; 80048; 85025; 85610; 99283; 99284 ==

== ENCOUNTER 2022-09-07 16:17 | Emergency (ER) | payer MEDICARE, OTHER ==
[2022-09-07] MEDS ORDERED: Sodium Chloride 0.9% 500 ML IV ONE (18:22)
== END 2022-09-07 20:14 | disposition home or self-care (01) ==
LOC: JP.ED 16:17
DX: I95.1 Orthostatic hypotension (principal); I10 Essential (primary) hypertension; E78.5 Hyperlipidemia, unspecified; Z86.73 Personal history of transient ischemic attack (TIA), and cerebral infarction without residual deficits; Z88.8 Allergy status to other drugs, medicaments and biological substances; Z79.01 Long term (current) use of anticoagulants
CPT/HCPCS: 36415; 80048; 81001; 85025; 93005; 99284; J7040; 93010; 99283